=== PATIENT | female | born 1980 | race African-American/Black ===

== ENCOUNTER 2021-09-28 08:01 | Emergency (ER) | payer MEDICAID ==
[~2021-09-28] VITALS: Ht 157.5 cm; Wt 59.0 kg
[~2021-09-28 08:01] MED LIST: ABUTEROL; MONT10TA21 PO; NAPR-681 PO; QVAR80 *; TIOT18CA3 IH; ZOLP5TAB2
[2021-09-28] MEDS ORDERED: MORPHINE SULFATE 4 MG/ML CPJ (NOT FOR IM USE) IV ONE ×2 (08:30→10:45)
[2021-09-28 09:15] LABS: BASOPHILS % 0.6 % (0.0-2.0); HEMATOCRIT. 37.1 % (36.0-48.0); HEMOGLOBIN. 12.2 g/dL (12.0-16.0); LYMPHOCYTES % 34.7 % (20.0-50.0); MEAN CORPUSCULAR HEMOGLOBIN 28.7 pg (28.0-32.0); MEAN CORPUSCULAR VOLUME 87.5 fL (81.0-99.0); MEAN PLATELET VOLUME 7.9 fl (7.4-10.4); NEUTROPHILS % 55.7 % (40.0-76.0); PLATELET 346 x1000/uL (130-400); RED BLOOD CELL COUNT 4.24 mill/uL (4.2-5.4); RED CELL DISTRIBUTION WIDTH 12.3 % (11.6-14.6)
[2021-09-28 09:20] LABS: CHLORIDE 110 mEq/L (98-107)
[2021-09-28 09:26] LABS: CLARITY URINE CLOUDY (CLEAR); COLOR URINE RED (YELLOW); KETONES URINE NEGATIVE (NEGATIVE); LEUKOCYTE ESTERASE URINE 1+ (NEGATIVE); NITRITE URINE NEGATIVE (NEGATIVE); OCCULT BLOOD URINE 3+ (NEGATIVE); PROTEIN URINE 2+ (NEGATIVE); SPECIFIC GRAVITY URINE 1.025 (1.005-1.030); UROBILINOGEN URINE 0.2 E.U./dL (0.2-1.0)
[2021-09-28 09:31] LABS: B-HCG QUANTITATIVE < 1 mIU/mL (<3)
[2021-09-28 11:27] LABS: HEMATOCRIT 35.8 % (36.0-48.0)
[2021-09-28 11:48] VITALS: BP 115/61
[2021-09-28] MEDS ORDERED: TOPUD PO (12:14)
[2021-09-28] MEDS ORDERED: MORP15TA67 MT ×2 (12:18→13:11)
[2021-09-28] MEDS ORDERED: IBUP-2028 MT (12:18)
== END 2021-09-28 12:18 | disposition home or self-care (01) ==
LOC: ER 08:01
DX: N93.8 Other specified abnormal uterine and vaginal bleeding (principal); N80.9 Endometriosis, unspecified; J44.9 Chronic obstructive pulmonary disease, unspecified; I10 Essential (primary) hypertension; Z79.899 Other long term (current) drug therapy
CPT/HCPCS: 36415; 76830; 76856; 80053; 81003; 81025; 84702; 85014; 85018; 85025; 86850; 86900; 86901; 96374; 96376; 99284; J2270; Z7610

== ENCOUNTER 2021-09-30 11:24 | Inpatient (IN) | payer MEDICAID ==
[~2021-09-30] VITALS: Ht 157.5 cm; Wt 70.3 kg
[~2021-09-30 11:24] MED LIST changes: +IBUP-2028 MT; +MORP15TA67 MT; +TOPUD PO
[2021-09-30] MEDS ORDERED: SODIUM CHLORIDE 0.9% 1,000 ML IV ONE ×2 (11:45→14:00)
[2021-09-30] MEDS ORDERED: MORPHINE SULFATE 4 MG/ML CPJ (NOT FOR IM USE) IV STA (12:40)
[2021-09-30] MEDS ORDERED: ONDANSETRON HCL 4MG/2ML INJ IV STA (12:40)
[2021-09-30 12:43] LABS: BASOPHILS % 0.6 % (0.0-2.0); EOSINOPHILS % 2.7 % (0.0-5.0); HEMOGLOBIN. 12.1 g/dL (12.0-16.0); LYMPHOCYTES % 36.8 % (20.0-50.0); MEAN CORPUSCULAR HEMOGLOBIN 28.1 pg (28.0-32.0); MEAN CORPUSCULAR VOLUME 86.1 fL (81.0-99.0); MEAN PLATELET VOLUME 7.5 fl (7.4-10.4); MONOCYTES % 5.3 % (2.0-8.0); NEUTROPHILS % 54.6 % (40.0-76.0); PLATELET 350 x1000/uL (130-400); RED BLOOD CELL COUNT 4.29 mill/uL (4.2-5.4); RED CELL DISTRIBUTION WIDTH 12.1 % (11.6-14.6)
[2021-09-30 12:44] LABS: CHLORIDE 106 mEq/L (98-107)
[2021-09-30 13:08] LABS: HCG SCREEN NEGATIVE
[2021-09-30] MEDS ORDERED: LORAZEPAM 2MG/ML CPJ IV ONE ×2 (13:45→16:15)
[2021-09-30] MEDS ORDERED: MORPHINE SULFATE 10 MG/ML CPJ IV ONE (14:30)
[2021-09-30 14:33] LABS: CLARITY URINE CLEAR (CLEAR); COLOR URINE YELLOW (YELLOW); KETONES URINE NEGATIVE (NEGATIVE); LEUKOCYTE ESTERASE URINE NEGATIVE (NEGATIVE); NITRITE URINE NEGATIVE (NEGATIVE); OCCULT BLOOD URINE 1+ (NEGATIVE); PH URINE 6.5 (4.5-8.0); PROTEIN URINE NEGATIVE (NEGATIVE); SPECIFIC GRAVITY URINE 1.014 (1.005-1.030); UROBILINOGEN URINE 0.2 E.U./dL (0.2-1.0)
[2021-09-30 14:42] LABS: *AMPHETAMINES SCREEN URINE NEGATIVE (NEGATIVE); *BARBITURATES SCREEN URINE NEGATIVE (NEGATIVE); *BENZODIAZEPINES SCREEN URINE NEGATIVE (NEGATIVE); *COCAINE SCREEN URINE NEGATIVE (NEGATIVE)
[2021-09-30 14:43] LABS: METHADONE URINE SCREEN NEGATIVE (NEGATIVE); PHENCYCLIDINE URINE SCREEN NEGATIVE (NEGATIVE)
[2021-09-30 14:45] LABS: CANNABINOID URINE SCREEN PRESUMTIVE POSITIVE (NEGATIVE); OPIATES URINE SCREEN PRESUMTIVE POSITIVE (NEGATIVE)
[2021-09-30] MEDS ORDERED: MAGNESIUM/ALUMINUM HYDROXIDE/SIMETHICONE 30ML UDC PO PRN (22:15)
[2021-09-30] MEDS ORDERED: ACETAMINOPHEN 650MG/20.3ML UDC GT PRN (22:15)
[2021-09-30] MEDS ORDERED: DOXYCYCLINE 100 MG in DEXT 5% WATER 100 ML IV SCH (22:15)
[2021-09-30] MEDS ORDERED: ONDANSETRON HCL 4MG/2ML INJ IV PRN (22:15)
[2021-09-30] MEDS ORDERED: MORPHINE SULFATE 2 MG/ML CPJ (NOT FOR IM USE) IV NR (22:15)
[2021-09-30] MEDS ORDERED: NALOXONE HCL 0.4MG/ML VIAL IV PRN (22:30)
[2021-09-30 23:10] VITALS: BP 116/46
[2021-09-30] MEDS ORDERED: IOHEXOL-300 100 ML BOTTLE ONE (23:43)
[2021-10-01] VITALS: BP 116/46
[2021-10-01] MEDS: DEXT 5%/0.45% NACL 1000ML 1,000 ML IV SCH ×4 (00:25→22:30)
[2021-10-01] MEDS ORDERED: QUET300T2 MT (02:08)
[2021-10-01] MEDS ORDERED: B50 GT (02:08)
[2021-10-01] MEDS ORDERED: DIVA500T3 MT (02:08)
[2021-10-01] MEDS ORDERED: CEFTRIAXONE 1,000 MG in DEXTROSE 5% WATER 50 ML IV SCH (03:00)
[2021-10-01] MEDS ORDERED: CEFTRIAXONE 1 G PREMIX 50 ML IV SCH (03:00)
[2021-10-01] MEDS: OXYCODONE HCL/ACETAMINOPHEN 5/325MG TABLET PO PRN ×4 (03:22→22:07)
[2021-10-01 03:30] VITALS: BP 124/56
[2021-10-01 08:00] VITALS: BP 125/69
[2021-10-01] MEDS ORDERED: METRONIDAZOLE 500 MG PREMIX 100 ML IV SCH (09:00)
[2021-10-01] MEDS: METRONIDAZOLE 500MG TABLET PO SCH ×2 (09:31→20:39)
[2021-10-01] MEDS: DOXYCYCLINE 100 MG in DEXT 5% WATER 100 ML IV SCH ×2 (09:45→23:09)
[2021-10-01 12:00] VITALS: BP 138/75
[2021-10-01 16:00] VITALS: BP 132/67
[2021-10-01] MEDS ORDERED: IBUPROFEN 800MG TABLET PO PRN (16:15)
[2021-10-01 20:00] VITALS: BP 114/63
[2021-10-02] VITALS: BP 127/73
[2021-10-02 00:29] LABS: BASOPHILS % 0.7 % (0.0-2.0); EOSINOPHILS % 3.5 % (0.0-5.0); HEMATOCRIT. 35.5 % (36.0-48.0); HEMOGLOBIN. 11.9 g/dL (12.0-16.0); MEAN CORPUSCULAR HEMOGLOBIN 28.5 pg (28.0-32.0); MEAN CORPUSCULAR VOLUME 85.2 fL (81.0-99.0); MEAN PLATELET VOLUME 7.8 fl (7.4-10.4); MONOCYTES % 7.8 % (2.0-8.0); PLATELET 361 x1000/uL (130-400); RED BLOOD CELL COUNT 4.17 mill/uL (4.2-5.4)
[2021-10-02] MEDS: CEFTRIAXONE 1,000 MG in DEXTROSE 5% WATER 50 ML IV SCH (03:00)
[2021-10-02 04:00] VITALS: BP 122/67
[2021-10-02] MEDS: DEXT 5%/0.45% NACL 1000ML 1,000 ML IV SCH ×3 (06:30→22:30)
[2021-10-02 08:00] VITALS: BP 108/61
[2021-10-02] MEDS: METRONIDAZOLE 500MG TABLET PO SCH ×2 (09:25→21:24)
[2021-10-02] MEDS: DOXYCYCLINE HYCLATE 100MG CAPSULE PO SCH ×2 (09:25→21:24)
[2021-10-02] MEDS: OXYCODONE HCL/ACETAMINOPHEN 5/325MG TABLET PO PRN ×3 (10:23→22:57)
[2021-10-02 12:00] VITALS: BP 109/48
[2021-10-02 16:00] VITALS: BP 97/58
[2021-10-02 20:00] VITALS: BP 115/67
[2021-10-03] VITALS: BP 121/61
[2021-10-03] MEDS: CEFTRIAXONE 1,000 MG in DEXTROSE 5% WATER 50 ML IV SCH (02:50)
[2021-10-03 04:00] VITALS: BP 113/55
[2021-10-03] MEDS: OXYCODONE HCL/ACETAMINOPHEN 5/325MG TABLET PO PRN (05:07)
[2021-10-03] MEDS: DEXT 5%/0.45% NACL 1000ML 1,000 ML IV SCH (05:52)
[2021-10-03] MEDS: METRONIDAZOLE 500MG TABLET PO SCH (08:48)
[2021-10-03] MEDS: DOXYCYCLINE HYCLATE 100MG CAPSULE PO SCH (08:48)
[2021-10-03 09:23] VITALS: BP 130/86
== END 2021-10-03 11:05 | disposition home or self-care (01) | DRG 531 ==
LOC: ER 11:24 → 6EST 15:22 → EDBEDREQTM 15:32 → EDBEDREQ 15:32 → ENRESERV 20:45
PROVIDERS: ADMIT Obstetrics & Gynecology; ATTEND Obstetrics & Gynecology
DX: N73.9 Female pelvic inflammatory disease, unspecified (principal); I10 Essential (primary) hypertension; N80.9 Endometriosis, unspecified; J44.9 Chronic obstructive pulmonary disease, unspecified; Z88.1 Allergy status to other antibiotic agents; Z88.8 Allergy status to other drugs, medicaments and biological substances; Z88.6 Allergy status to analgesic agent; Z91.018 Allergy to other foods; Z79.899 Other long term (current) drug therapy
CPT/HCPCS: 36415; 74176; 80053; 80305; 81003; 84703; 85025; 99291; C1893; J0696; J2060; J2270; J2405; J3490; J7030; J7040; J7060; Q9967

== ENCOUNTER 2021-12-22 10:27 | Emergency (ER) | payer MEDICAID ==
[~2021-12-22] VITALS: Ht 157.5 cm; Wt 75.0 kg
[~2021-12-22 10:27] MED LIST changes: +B50 GT; +DIVA500T3 MT; -MONT10TA21 PO; -NAPR-681 PO; +QUET300T2 MT; -QVAR80 *; -TIOT18CA3 IH; -ZOLP5TAB2
[2021-12-22] MEDS ORDERED: IBUPROFEN 800MG TABLET PO ONE (11:15)
[2021-12-22] MEDS ORDERED: IBUP-2030 MT (11:16)
[2021-12-22 11:26] VITALS: BP 101/75
== END 2021-12-22 11:26 | disposition home or self-care (01) ==
LOC: ER 10:27
DX: M77.01 Medial epicondylitis, right elbow (principal); G40.909 Epilepsy, unspecified, not intractable, without status epilepticus; J44.9 Chronic obstructive pulmonary disease, unspecified; Z90.49 Acquired absence of other specified parts of digestive tract; Z88.8 Allergy status to other drugs, medicaments and biological substances; Z88.3 Allergy status to other anti-infective agents; Z91.018 Allergy to other foods
CPT/HCPCS: 99282

== ENCOUNTER 2022-05-31 07:02 | Emergency (ER) | payer MEDICAID ==
[~2022-05-31] VITALS: Ht 157.5 cm; Wt 78.0 kg
[~2022-05-31 07:02] MED LIST changes: +IBUP-2030 MT
[2022-05-31] MEDS ORDERED: IPRATROPIUM BROMIDE (0.02%) 0.5MG/2.5ML NEB HHN STA (10:31)
[2022-05-31] MEDS ORDERED: ALBUTEROL (0.083%) 2.5MG/3ML NEB HHN STA (10:31)
[2022-05-31] MEDS ORDERED: METHYLPREDNISOLONE SOD SUCC 125 MG/2 ML VIAL IV STA (10:31)
[2022-05-31] MEDS ORDERED: HYDROCODONE/ACETAMINOPHEN 5/325MG TABLET PO ONE (11:15)
[2022-05-31 11:30] LABS: BASOPHILS % 0.6 % (0.0-2.0); EOSINOPHILS % 0.4 % (0.0-5.0); HEMATOCRIT. 38.2 % (36.0-48.0); HEMOGLOBIN. 12.6 g/dL (12.0-16.0); MEAN CORPUSCULAR HEMOGLOBIN 29.1 pg (28.0-32.0); MEAN CORPUSCULAR VOLUME 87.9 fL (81.0-99.0); MEAN PLATELET VOLUME 7.6 fl (7.4-10.4); MONOCYTES % 4.7 % (2.0-8.0); NEUTROPHILS % 66.3 % (40.0-76.0); PLATELET 366 x1000/uL (130-400); RED BLOOD CELL COUNT 4.35 mill/uL (4.2-5.4); RED CELL DISTRIBUTION WIDTH 12.4 % (11.6-14.6)
[2022-05-31 11:33] LABS: CHLORIDE 105 mEq/L (98-107)
[2022-05-31] MEDS ORDERED: SODIUM CHLORIDE 0.9% 1,000 ML IV ONE (12:15)
[2022-05-31] MEDS ORDERED: P50 MT (12:17)
[2022-05-31 12:25] VITALS: BP 110/62
== END 2022-05-31 12:35 | disposition home or self-care (01) ==
LOC: ER 07:02
DX: J45.901 Unspecified asthma with (acute) exacerbation (principal); J44.9 Chronic obstructive pulmonary disease, unspecified; Z90.49 Acquired absence of other specified parts of digestive tract; Z79.899 Other long term (current) drug therapy
CPT/HCPCS: 36415; 71045; 80053; 83880; 84484; 85025; 93005; 94640; 96374; 99285; J2930; J7030; Z7610

== ENCOUNTER 2022-08-12 14:15 | Emergency (ER) | payer MEDICAID ==
[~2022-08-12] VITALS: Ht 157.5 cm; Wt 75.0 kg
[~2022-08-12 14:15] MED LIST changes: -IBUP-2028 MT; -IBUP-2030 MT; +LIP40 PO; -MORP15TA67 MT
[2022-08-12 14:25] VITALS: BP 145/87
[2022-08-12] MEDS ORDERED: ONDANSETRON HCL 4MG/2ML INJ IV ONE (17:00)
[2022-08-12] MEDS ORDERED: SODIUM CHLORIDE 0.9% 1,000 ML IV ONE (17:00)
[2022-08-12 17:38] LABS: PROTHROMBIN TIME 10.3 sec (9.6-11.0)
[2022-08-12 17:40] LABS: BASOPHILS % 0.8 % (0.0-2.0); CHLORIDE 108 mEq/L (98-107); EOSINOPHILS % 1.4 % (0.0-5.0); HEMATOCRIT. 38.2 % (36.0-48.0); HEMOGLOBIN. 12.7 g/dL (12.0-16.0); LYMPHOCYTES % 38.4 % (20.0-50.0); MEAN CORPUSCULAR HEMOGLOBIN 28.9 pg (28.0-32.0); MEAN PLATELET VOLUME 7.8 fl (7.4-10.4); NEUTROPHILS % 54.4 % (40.0-76.0); PLATELET 355 x1000/uL (130-400); RED BLOOD CELL COUNT 4.39 mill/uL (4.2-5.4); RED CELL DISTRIBUTION WIDTH 12.1 % (11.6-14.6)
[2022-08-12 17:47] LABS: CLARITY URINE CLEAR (CLEAR); COLOR URINE YELLOW (YELLOW); KETONES URINE TRACE (NEGATIVE); LEUKOCYTE ESTERASE URINE TRACE (NEGATIVE); NITRITE URINE POSITIVE (NEGATIVE); OCCULT BLOOD URINE 2+ (NEGATIVE); PH URINE 5.5 (4.5-8.0); PROTEIN URINE TRACE (NEGATIVE); SPECIFIC GRAVITY URINE 1.034 (1.005-1.030); UROBILINOGEN URINE 0.2 E.U./dL (0.2-1.0)
[2022-08-12] MEDS ORDERED: CEFTRIAXONE 1 G PREMIX 50 ML IV NR (18:30)
[2022-08-12] MEDS ORDERED: CEPHALEXIN 250MG CAPSULE PO NR (19:00)
[2022-08-12] MEDS ORDERED: CEPH500T MT (19:05)
== END 2022-08-12 19:52 | disposition home or self-care (01) ==
LOC: ER 14:15
DX: N39.0 Urinary tract infection, site not specified (principal); D25.9 Leiomyoma of uterus, unspecified; J44.9 Chronic obstructive pulmonary disease, unspecified; Z86.73 Personal history of transient ischemic attack (TIA), and cerebral infarction without residual deficits; Z90.49 Acquired absence of other specified parts of digestive tract; Z88.3 Allergy status to other anti-infective agents; Z88.5 Allergy status to narcotic agent; Z91.018 Allergy to other foods
CPT/HCPCS: 36415; 76830; 76856; 80053; 81003; 81025; 83605; 83690; 85025; 85610; 86850; 86900; 86901; 96360; 99284; J7030

== ENCOUNTER 2022-09-08 08:09 | Emergency (ER) | payer MEDICAID ==
[~2022-09-08] VITALS: Ht 157.5 cm; Wt 77.0 kg
[~2022-09-08 08:09] MED LIST changes: +CEPH500T MT
[2022-09-08 08:27] VITALS: BP 112/75
[2022-09-08] MEDS ORDERED: CALA177S9 TP (09:10)
[2022-09-08] MEDS ORDERED: NYST15OI TP (09:10)
== END 2022-09-08 09:18 | disposition home or self-care (01) ==
LOC: ER 08:09
DX: L30.4 Erythema intertrigo (principal); F17.290 Nicotine dependence, other tobacco product, uncomplicated; J45.909 Unspecified asthma, uncomplicated; Z88.1 Allergy status to other antibiotic agents; Z88.6 Allergy status to analgesic agent; Z88.5 Allergy status to narcotic agent; Z79.899 Other long term (current) drug therapy; Z98.890 Other specified postprocedural states; Z90.49 Acquired absence of other specified parts of digestive tract; Z86.59 Personal history of other mental and behavioral disorders
CPT/HCPCS: 99283; 99406